=== PATIENT | male | born 1965 | race Caucasian/White ===

== ENCOUNTER 2017-02-28 11:00 | Outpatient (CLI) | payer OTHER ==
[~2017-02-28 11:00] MED LIST: ALEVE220 MG PO; ATENOLOL50 MG PO; ATORVASTATIN CA40 MG PO; BUPROPION HCL300 MG PO; COLACE100 MG PO; CYCLOBENZAPRINE10 MG PO; CYMBALTA30 MG PO; FLUTICASONE PR50 MCG; HYCET1 ML PO; ONDANSETRON ODT4 MG PO; OXYCONTIN CR10 MG PO; PROAIR HFA IN; VIAGRA25 MG; VITAMIN D-31000 UNIT PO
--- NOTE | 2017-02-28 12:42 | DIAGNOSTIC IMAGING REPORT ---
PROCEDURE: US ABDOMEN ULTRASOUND-COMPLETE INDICATION: RLQ/LLQ ABD PAIN TECHNIQUE: Jefferson scale and color Doppler sonographic images of the abdomen were obtained without comparison. COMPARISON: None. FINDINGS: The liver is normal in size, contour, and echotexture. No mass or intrahepatic biliary dilatation. The gallbladder is normal without stones or sludge. The wall is normal thickness measuring 2.1 mm No pericholecystic fluid or Romero sign. The extrahepatic common duct is not well seen. The pancreatic head is not well seen. The abdominal aorta is normal in its course and caliber. The retrohepatic inferior vena cava is patent. There is appropriate hepatopetal flow in the portal vein. The right kidney measures 11.5 cm in length. The left kidney measures 11.9 cm in length. The left renal pelvis is mildly dilated. A stone could be seen in the renal pelvis. The spleen is normal in size measuring 11.9 cm in length. There is no perihepatic or perisplenic ascites. IMPRESSION: 1. Stone in the left renal pelvis with mild dilation of the pelvis.
== END 2017-02-28 23:00 ==
LOC: US SRH 11:00
DX: R10.31 Right lower quadrant pain (principal); R10.32 Left lower quadrant pain; N20.0 Calculus of kidney